=== PATIENT | female | born 1995 | race Caucasian/White ===

== ENCOUNTER 2022-01-29 14:19 | Emergency (ER) | payer OTHER ==
[~2022-01-29 14:19] MED LIST: IBUPROFEN800 MG PO; NAPROSYN250 MG PO
== END 2022-01-29 15:45 | disposition left against medical advice (07) ==
LOC: FER 14:19
DX: R06.02 Shortness of breath (principal); F17.290 Nicotine dependence, other tobacco product, uncomplicated; Z88.5 Allergy status to narcotic agent; Z53.29 Procedure and treatment not carried out because of patient's decision for other reasons; Z28.310 Unvaccinated for COVID-19
CPT/HCPCS: 99283